=== PATIENT | male | born 1945 | race Caucasian/White ===

== ENCOUNTER 2020-10-23 23:52 | Inpatient (IN) | payer OTHER ==
[~2020-10-23] VITALS: Ht 180.3 cm; Wt 81.6 kg
[2020-10-24 01:41] LABS: Basophils # (auto) 0.1 10 ^3/uL (0-0.2); Basophils % (auto) 1.1 % (0.0-2.0); Eosinophils # (auto) 0.2 10 ^3/uL (0-0.8); Eosinophils % (auto) 4.1 % (0.0-7.0); Hematocrit 45.5 % (41.0-53.0); Hemoglobin 15.6 g/dL (13.5-17.5); Lymphocytes # (auto) 1.7 10 ^3/uL (0.4-5.4); Lymphocytes % (auto) 32.2 % (10.0-50.0); Mean Corpuscular Hemoglobin 32.7 pg (28.0-32.0); Mean Corpuscular Hgb Conc. 34.2 g/dL (32.0-36.0); Mean Corpuscular Volume 95.5 fL (80.0-100.0); Monocytes # (auto) 0.6 10 ^3/uL (0-1.3); Monocytes % (auto) 10.5 % (0.0-12.0); Neutrophils # (auto) 2.8 10 ^3/uL (1.6-8.6); Neutrophils % (auto) 52.1 % (37.0-80.0); Nucleated Red Blood Cells % 0.1 %; Red Blood Cells 4.76 10^6/uL (4.5-5.90); Red Cell Distribution Width 13.7 % (11.8-14.3); White Blood Cell 5.3 10^3/uL (4.4-10.8)
[2020-10-24 01:46] LABS: Alanine Aminotransferase 26 U/L (16-61); Albumin 3.7 g/dL (3.4-5.0); Anion Gap 8 (5-15); Aspartate Aminotransferase 31 U/L (15-37); BUN/Creatinine Ratio 28.3; Blood Urea Nitrogen 26 mg/dL (7-18); Calcium 8.7 mg/dL (8.5-10.1); Carbon Dioxide 22 mmol/L (21-32); Chloride 113 mmol/L (98-107); GFR African American 103 mL/min; GFR Non-African American 85 mL/min; Glucose 100 mg/dL (74-106); Potassium 4.2 mmol/L (3.5-5.1); Sodium 143 mmol/L (136-145)
[2020-10-24 01:46] LABS: Urine Bacteria NONE SEEN /hpf (None Seen); Urine Blood Negative /uL (Negative); Urine Specific Gravity 1.008 (1.001-1.035); Urine WBC <1 /hpf (0 - 3)
[2020-10-24 01:50] LABS: Alkaline Phosphatase 82 U/L (45-117); Bilirubin, Total 0.5 mg/dL (0.2-1.0); Total Protein 6.9 g/dL (6.4-8.2)
[2020-10-24] MEDS ORDERED: SOD CHL 0.45% 1,000 ML IV ONE (04:30)
[2020-10-24] MEDS ORDERED: DOCUSATE SOD 100 MG CAP PO PRN (04:30)
[2020-10-24] MEDS ORDERED: NITROGLYCERIN 0.4 MG SL TAB SL PRN (04:30)
[2020-10-24] MEDS ORDERED: MORPHINE SULFATE INJECTION 2 MG/ML SYRG IV PRN (04:30)
[2020-10-24] MEDS ORDERED: ACETAMINOPHEN 325 MG TAB PO PRN (04:30)
[2020-10-24] MEDS ORDERED: ONDANSETRON HCL 4 MG/2 ML VIAL IV PRN (04:30)
[2020-10-24] MEDS ORDERED: HYDROcodone-ACET 5/325MG TAB PO PRN (04:30)
[2020-10-24 08:46] LABS: Cholesterol 176 mg/dL (< 200); Triglycerides 75 mg/dL (< 150)
[2020-10-24 08:50] LABS: HDL Cholesterol 61 mg/dL (40-59); LDL Cholesterol 99 mg/dL (< 100)
[2020-10-24] MEDS: ZINC SULFATE 220mg CAP or TAB PO SCH (10:10)
[2020-10-24] MEDS: MULTIPLE VITAMIN TAB PO SCH (10:10)
[2020-10-24] MEDS: ASPirin 81 mg TAB PO SCH (10:10)
[2020-10-24] MEDS: FAMOTIDINE 20 MG TAB PO SCH (10:10)
[2020-10-24] MEDS: ASCORBIC ACID 500 MG TAB PO SCH ×2 (10:10→20:41)
[2020-10-24] MEDS ORDERED: AMIODARONE HCL 200 MG TAB PO ONE (10:15)
[2020-10-24] MEDS: AMIODARONE HCL 200 MG TAB PO SCH (20:41)
[2020-10-25] MEDS: ADENOSINE 69 MG in GIVE UN-DILUTED 0 ML IV ONE ×2 (08:00→09:36)
[2020-10-25 09:23] VITALS: BP 145/75
[2020-10-25] MEDS: AMIODARONE HCL 200 MG TAB PO SCH (10:00)
[2020-10-25] MEDS: ASPirin 81 mg TAB PO SCH (11:30)
[2020-10-25] MEDS: ZINC SULFATE 220mg CAP or TAB PO SCH (11:30)
[2020-10-25] MEDS: ASCORBIC ACID 500 MG TAB PO SCH (11:30)
[2020-10-25] MEDS: MULTIPLE VITAMIN TAB PO SCH (11:30)
[2020-10-25] MEDS: FAMOTIDINE 20 MG TAB PO SCH (11:30)
[2020-10-25 12:25] LABS: Basophils # (auto) 0 10 ^3/uL (0-0.2); Basophils % (auto) 0.5 % (0.0-2.0); Eosinophils # (auto) 0 10 ^3/uL (0-0.8); Eosinophils % (auto) 0.3 % (0.0-7.0); Hematocrit 44.2 % (41.0-53.0); Hemoglobin 15.6 g/dL (13.5-17.5); Lymphocytes # (auto) 0.7 10 ^3/uL (0.4-5.4); Lymphocytes % (auto) 10.9 % (10.0-50.0); Mean Corpuscular Hemoglobin 32.9 pg (28.0-32.0); Mean Corpuscular Hgb Conc. 35.2 g/dL (32.0-36.0); Mean Corpuscular Volume 93.5 fL (80.0-100.0); Monocytes # (auto) 0.4 10 ^3/uL (0-1.3); Monocytes % (auto) 5.4 % (0.0-12.0); Neutrophils # (auto) 5.4 10 ^3/uL (1.6-8.6); Neutrophils % (auto) 82.9 % (37.0-80.0); Nucleated Red Blood Cells % 0.2 %; Red Blood Cells 4.73 10^6/uL (4.5-5.90); White Blood Cell 6.5 10^3/uL (4.4-10.8)
[2020-10-25 12:44] LABS: Albumin 3.7 g/dL (3.4-5.0); Calcium 8.9 mg/dL (8.5-10.1); Potassium 4.5 mmol/L (3.5-5.1)
[2020-10-25 12:48] LABS: BUN/Creatinine Ratio 26.3; Bilirubin, Total 1.1 mg/dL (0.2-1.0); Total Protein 6.7 g/dL (6.4-8.2)
== END 2020-10-25 13:16 | disposition left against medical advice (07) | DRG 310 ==
LOC: EDBD 23:52 → EDSEX 23:52 → ER 23:55 → EDSEX 23:55 → TELE 10-24 04:20
PROVIDERS: ADMIT Nurse Practitioner Family; ATTEND Internal Medicine
DX: I48.0 Paroxysmal atrial fibrillation (principal); R00.1 Bradycardia, unspecified; R94.4 Abnormal results of kidney function studies; Z53.29 Procedure and treatment not carried out because of patient's decision for other reasons; Z20.822 Contact with and (suspected) exposure to COVID-19
CPT/HCPCS: 36415; 71045; 78452; 80053; 80061; 81001; 83735; 83880; 84443; 84484; 85025; 87426; 93005; 93017; 93306; 96360; G0378; J0153

== ENCOUNTER → 2021-07-11 | Outpatient (CLI) | payer OTHER ==
[2021-07-11 08:27] LABS: Albumin 3.7 g/dL (3.4-5.0); Potassium 4.1 mmol/L (3.5-5.1)
[2021-07-11 08:28] LABS: Urine Bacteria NONE SEEN /hpf (None Seen); Urine Blood Negative /uL (Negative); Urine Specific Gravity 1.017 (1.001-1.035); Urine WBC 1 /hpf (0 - 3)
[2021-07-11 08:33] LABS: Basophils # (auto) 0 10 ^3/uL (0-0.2); Eosinophils # (auto) 0.2 10 ^3/uL (0-0.8); Hematocrit 41.7 % (41.0-53.0); Hemoglobin 14.9 g/dL (13.5-17.5); Lymphocytes # (auto) 1.1 10 ^3/uL (0.4-5.4); Lymphocytes % (auto) 25.2 % (10.0-50.0); Mean Corpuscular Hemoglobin 33.4 pg (28.0-32.0); Mean Corpuscular Hgb Conc. 35.6 g/dL (32.0-36.0); Mean Corpuscular Volume 93.9 fL (80.0-100.0); Monocytes # (auto) 0.6 10 ^3/uL (0-1.3); Monocytes % (auto) 12.1 % (0.0-12.0); Neutrophils # (auto) 2.6 10 ^3/uL (1.6-8.6); Neutrophils % (auto) 56.7 % (37.0-80.0); Nucleated Red Blood Cells % 0.2 %; Red Blood Cells 4.44 10^6/uL (4.5-5.90); White Blood Cell 4.6 10^3/uL (4.4-10.8)
[2021-07-11 08:35] LABS: BUN/Creatinine Ratio 23.5; Bilirubin, Total 0.7 mg/dL (0.2-1.0); Calcium 8.9 mg/dL (8.5-10.1); Total Protein 6.6 g/dL (6.4-8.2)
== END | disposition home or self-care (01) ==
LOC: LAB 07:35
PROVIDERS: ATTEND Nurse Practitioner
DX: E78.5 Hyperlipidemia, unspecified (principal); I10 Essential (primary) hypertension
CPT/HCPCS: 36415; 80053; 80061; 81001; 85025

== ENCOUNTER → 2021-07-18 | Outpatient (CLI) | payer OTHER | END | disposition home or self-care (01) | LOC: XYW 08:29 | PROVIDERS: ATTEND Internal Medicine | DX: I08.8 Other rheumatic multiple valve diseases (principal) | CPT/HCPCS: 93306 ==